=== PATIENT | female | born 1980 | race Caucasian/White ===

== ENCOUNTER 2019-01-28 17:54 | Emergency (ER) | payer SELFPAY ==
[2019-01-28 18:13] LABS: Bilirubin Negative (Negative); Blood, Urine Trace (Negative); Glucose, Urine (Dipstick) Negative (Negative); Leukocyte Negative (Negative); Nitrite Negative (Negative); Protein, Urine (Dipstick) Negative (Neg-Trace); Urobilinogen 0.2 mg/dL (0.2-1.0)
[2019-01-28 18:18] LABS: Clarity Hazy (Clear)
[2019-01-28 18:19] LABS: Specific Gravity, Urine 1.007 (1.002-1.036)
[2019-01-28 18:24] LABS: Bacteria/HPF Rare-Few HPF (None Seen); RBC/HPF 0-3 HPF (0-3); WBC/HPF 0-3 HPF (0-3)
--- NOTE | 2019-01-28 18:34 | CT ---
Exam: Abdomen CT without contrast Pelvic CT without contrast HISTORY: Left kidney pain COMPARISON: 10/31/2009 FINDINGS: Abdomen CT: Lung bases:0.9 x 1.0 cm slightly irregular marginated opacity in the right lung base, evaluated. Opac ity is likely in the middle lobe. Heart size: Normal size Aorta: Normal caliber Solid organs: Limited evaluation due to technique. Grossly no solid organ abnormality Lymph nodes: No gastrohepatic, retrocrural or periportal lymphadenopathy Gallbladder: Surgically Mesentery: No mass, lymphadenopathy, free air or free fluid Kidneys: Bilaterally, no hydronephrosis, nephrolithiasis or perinephric fat stranding. Bilateral uret ers have a normal caliber. No hydroureter, periureteral fat stranding or ureterolithiasis. Alimentary canal: Limited evaluation due to technique. No bowel obstruction. Normal caliber appendix. CT PELVIS: No mass, adenopathy, free air or free fluid. Surgically absent uterus. Urinary bladder: Unremarkable. Osseous structures: No lytic or blastic lesions IMPRESSION: 1. No evidence of nephrolithiasis or obstructive uropathy 2. Normal caliber appendix 3. Ill-defined opacity in the middle lobe. Nonemergent chest CT can be performed Code lung nodule
[2019-01-28] MEDS ORDERED: Sodium Chloride 0.9% 1,000 ML ONE (18:35)
[2019-01-28] MEDS ORDERED: Ondansetron PF 4 MG/2 ML Vial ONE (18:35)
[2019-01-28] MEDS ORDERED: Fentanyl 100 MCG/2 ML VIAL ONE (18:35)
[2019-01-28 18:36] LABS: #Eosinphils 0.2 thou/uL (0.0-0.7); #Lymphocytes 2.4 thou/uL (1.20-3.40); #Monocytes 0.3 thou/uL (0.11-0.59); #Neutrophils 2.2 thou/uL (1.40-6.50); %Basophils 0.7 % (0.0-1.0); %Eosinophils 4.6 % (0.0-10.0); %Lymphocytes 45.5 % (21.0-51.0); %Monocytes 6.1 % (0.0-10.0); %Neutrophils 43.1 % (42.0-75.0); Hemoglobin 13.8 g/dL (12.0-16.0); Mean Corpuscular HGB CONC 32.6 g/dL (32.0-36.0); Mean Corpuscular Hemoglobin 30.8 pg (27.0-31.0); Mean Corpuscular Volume 94.4 fL (78.0-98.0); Mean Platelet Volume 6.8 fL (7.4-10.4); Platelet Count 265 thou/uL (130-400); RBC Distribution Width 12.4 % (11.5-14.5); Red Blood Cell (RBC) Count 4.49 mill/uL (4.20-5.40); White Blood Cell (WBC) Count 5.2 thou/uL (4.8-10.8)
[2019-01-28 18:50] LABS: ALT (SGPT) 19 U/L (8-55); AST (SGOT) 16 U/L (5-34); Albumin 4.1 g/dL (3.5-5.0); Alkaline Phosphatase 94 U/L (40-150); Anion Gap 12 mmol/L (10-20); BUN (Urea Nitrogen) 8 mg/dL (7.0-18.7); Bilirubin, Total 0.4 mg/dL (0.2-1.2); Calc. Creatinine Clearance 0 mL/min (70-130); Calcium 9.2 mg/dL (7.8-10.44); Carbon Dioxide 22 mmol/L (22-29); Chloride 111 mmol/L (98-107); Estimated GFR-MDRD 83; Globulin 2.9 g/dL (2.4-3.5); Glucose 109 mg/dL (70-105); Lipase 45 U/L (8-78); Sodium 141 mmol/L (136-145)
[2019-01-28] MEDS ORDERED: Ketorolac Tromethamine 30 MG/ML VIAL ONE (19:10)
== END 2019-01-28 19:48 | disposition home or self-care (01) ==
LOC: MADERS 17:54
DX: R10.9 Unspecified abdominal pain (principal); F41.9 Anxiety disorder, unspecified; F17.210 Nicotine dependence, cigarettes, uncomplicated; Z87.442 Personal history of urinary calculi; Z79.899 Other long term (current) drug therapy
CPT/HCPCS: 74176; 80053; 81003; 81015; 83690; 85025; 96361; 96374; 96375; J1885; J2405; J3010; J7050

== ENCOUNTER 2019-03-16 11:19 | Emergency (ER) | payer SELFPAY ==
[2019-03-16 12:07] LABS: Bilirubin Negative (Negative); Blood, Urine Large (Negative); Clarity Clear (Clear); Glucose, Urine (Dipstick) Negative (Negative); Leukocyte Negative (Negative); Nitrite Negative (Negative); Protein, Urine (Dipstick) Negative (Neg-Trace); Urobilinogen 0.2 mg/dL (0.2-1.0)
[2019-03-16 12:09] LABS: Specific Gravity, Urine 1.028 (1.002-1.036)
[2019-03-16 12:13] LABS: Bacteria/HPF Rare-Few HPF (None Seen); WBC/HPF 0-3 HPF (0-3)
[2019-03-16 12:25] LABS: #Eosinphils 0.2 thou/uL (0.0-0.7); #Lymphocytes 2.3 thou/uL (1.20-3.40); #Monocytes 0.4 thou/uL (0.11-0.59); #Neutrophils 2.7 thou/uL (1.40-6.50); %Basophils 0.5 % (0.0-1.0); %Eosinophils 4.1 % (0.0-10.0); %Lymphocytes 40.5 % (21.0-51.0); %Monocytes 7.3 % (0.0-10.0); %Neutrophils 47.7 % (42.0-75.0); Hemoglobin 12.9 g/dL (12.0-16.0); Mean Corpuscular HGB CONC 31.9 g/dL (32.0-36.0); Mean Corpuscular Hemoglobin 30.2 pg (27.0-31.0); Mean Corpuscular Volume 94.8 fL (78.0-98.0); Mean Platelet Volume 7.4 fL (7.4-10.4); Platelet Count 269 thou/uL (130-400); RBC Distribution Width 12.1 % (11.5-14.5); Red Blood Cell (RBC) Count 4.27 mill/uL (4.20-5.40); White Blood Cell (WBC) Count 5.7 thou/uL (4.8-10.8)
[2019-03-16] MEDS ORDERED: Morphine 10 MG/ML VIAL ONE (12:25)
[2019-03-16 12:46] LABS: ALT (SGPT) 28 U/L (8-55); AST (SGOT) 17 U/L (5-34); Albumin 4.3 g/dL (3.5-5.0); Alkaline Phosphatase 85 U/L (40-150); Anion Gap 13 mmol/L (10-20); BUN (Urea Nitrogen) 21 mg/dL (7.0-18.7); Bilirubin, Total 0.4 mg/dL (0.2-1.2); Calc. Creatinine Clearance 0 mL/min (70-130); Calcium 9.2 mg/dL (7.8-10.44); Carbon Dioxide 25 mmol/L (22-29); Chloride 106 mmol/L (98-107); Estimated GFR-MDRD 87; Globulin 2.6 g/dL (2.4-3.5); Glucose 81 mg/dL (70-105); Lipase 39 U/L (8-78); Potassium 4.3 mmol/L (3.5-5.1); Protein, Total 6.9 g/dL (6.0-8.3); Sodium 140 mmol/L (136-145)
--- NOTE | 2019-03-16 12:58 | CT ---
CT abdomen and pelvis noncontrast HISTORY: Flank pain. COMPARISON: 01/28/2019. FINDINGS: Each renal collecting system, ureter, and urinary bladder are decompressed without stone ap parent. Lack of contrast limits evaluation for other abnormalities. Gallbladder is surgically absent. No evid ence of bowel obstruction. The irregular shaped peripheral 1.1 cm noncalcified groundglass nodule within the right middle lobe i s unchanged in appearance from the previous exam. Mild atelectasis at each posterior lung base. IMPRESSION: No CT evidence of urinary tract obstruction or calcification. Unchanged appearance of the small peripheral right middle lobe nodule. Please consider follow-up with full CT chest, including IV contrast, in 4-6 months to evaluate for stability and other abnormalities.
[2019-03-16] MEDS ORDERED: HYDROcodone/Acetaminophen 5/325 mg Tablet ONE (13:22)
== END 2019-03-16 13:32 | disposition home or self-care (01) ==
LOC: MADERS 11:19
DX: R10.9 Unspecified abdominal pain (principal); F41.9 Anxiety disorder, unspecified; F17.210 Nicotine dependence, cigarettes, uncomplicated; Z79.899 Other long term (current) drug therapy
CPT/HCPCS: 74176; 80053; 81003; 81015; 83605; 83690; 85025; 96372; J2270

== ENCOUNTER 2019-03-27 13:07 | Emergency (ER) | payer SELFPAY ==
[2019-03-27 13:37] LABS: Bilirubin Negative (Negative); Blood, Urine Large (Negative); Clarity Hazy (Clear); Glucose, Urine (Dipstick) Negative (Negative); Leukocyte Negative (Negative); Nitrite Negative (Negative); Protein, Urine (Dipstick) Negative (Neg-Trace); Urobilinogen 0.2 mg/dL (Less than 2)
[2019-03-27 13:38] LABS: Pregnancy Test - Urine (BHCG) Negative (Negative); Pregu Control Background? CLEAR/WHITE (CLR/WHITE); Pregu Control Bar Appear? YES (CONTROL BAR)
[2019-03-27] MEDS ORDERED: Acetaminophen/Codeine 30-300mg Tablet ONE (13:40)
[2019-03-27] MEDS ORDERED: Benzonatate 100 MG CAP ONE (13:40)
[2019-03-27 13:43] LABS: Specific Gravity 1.024 (1.002-1.036)
[2019-03-27 13:57] LABS: WBC/HPF 0-3 HPF (0-3)
[2019-03-27 13:58] LABS: Bacteria/HPF Rare-Few HPF (None Seen)
--- NOTE | 2019-03-27 13:59 | RAD ---
RADIOGRAPH CHEST 2 VIEWS: DATE: 03/27/2019 HISTORY: 38-year-old female with cough FINDINGS: There is no airspace density, pulmonary edema, pleural effusion, pneumothorax, or cardiomegaly. IMPRESSION: No acute cardiopulmonary findings.
== END 2019-03-27 14:53 | disposition home or self-care (01) ==
LOC: MADERS 13:07
DX: J20.8 Acute bronchitis due to other specified organisms (principal); F41.9 Anxiety disorder, unspecified; F17.210 Nicotine dependence, cigarettes, uncomplicated; Z79.899 Other long term (current) drug therapy; Z87.442 Personal history of urinary calculi
CPT/HCPCS: 71046; 81003; 81015; 81025

== ENCOUNTER 2019-04-23 13:59 | Emergency (ER) | payer SELFPAY ==
--- NOTE | 2019-04-23 14:54 | RAD ---
2 VIEW CHEST: Date: 04/23/19 HISTORY: Cough. FINDINGS: Lung estrada are clear. Heart and mediastinum unremarkable. Osseous structures unremarkable. IMPRESSION: No acute abnormality. POS: [facility]
== END 2019-04-23 15:17 | disposition home or self-care (01) ==
LOC: MADERS 13:59
DX: J18.9 Pneumonia, unspecified organism (principal); F17.210 Nicotine dependence, cigarettes, uncomplicated; Z71.6 Tobacco abuse counseling; F41.9 Anxiety disorder, unspecified; Z79.899 Other long term (current) drug therapy
CPT/HCPCS: 71046; 99406

== ENCOUNTER 2019-08-22 23:19 | Emergency (ER) | payer SELFPAY ==
[2019-08-22 23:58] LABS: #Basophils 0.1 thou/uL (0.0-0.2); #Eosinphils 0.4 thou/uL (0.0-0.7); #Monocytes 0.4 thou/uL (0.11-0.59); #Neutrophils 3.6 thou/uL (1.40-6.50); %Basophils 0.7 % (0.0-1.0); %Eosinophils 4.7 % (0.0-10.0); %Lymphocytes 46.8 % (21.0-51.0); %Neutrophils 42.8 % (42.0-75.0); Hemoglobin 14.9 g/dL (12.0-16.0); Mean Corpuscular HGB CONC 32.3 g/dL (32.0-36.0); Mean Corpuscular Hemoglobin 30.8 pg (27.0-31.0); Mean Corpuscular Volume 95.4 fL (78.0-98.0); Mean Platelet Volume 8.2 fL (7.4-10.4); Platelet Count 373 thou/uL (130-400); Red Blood Cell (RBC) Count 4.85 mill/uL (4.20-5.40); White Blood Cell (WBC) Count 8.5 thou/uL (4.8-10.8)
[2019-08-23 00:08] LABS: ALT (SGPT) 28 U/L (8-55); AST (SGOT) 16 U/L (5-34); Albumin 4.7 g/dL (3.5-5.0); Alkaline Phosphatase 111 U/L (40-110); Anion Gap 18 mmol/L (10-20); BUN (Urea Nitrogen) 4 mg/dL (7.0-18.7); Bilirubin, Total 0.4 mg/dL (0.2-1.2); Calc. Creatinine Clearance 0 mL/min (70-130); Calcium 9.3 mg/dL (7.8-10.44); Carbon Dioxide 19 mmol/L (22-29); Chloride 112 mmol/L (98-107); Estimated GFR-MDRD 82; Globulin 3.1 g/dL (2.4-3.5); Glucose 145 mg/dL (70-105); Potassium 3.8 mmol/L (3.5-5.1); Protein, Total 7.8 g/dL (6.0-8.3); Sodium 145 mmol/L (136-145)
[2019-08-23 00:20] LABS: Acetaminophen Less than 6.0 mcg/mL (10.0-30.0); Alcohol 275 mg/dL (Less than 10); Salicylate Less than 8.0 mg/dL (15.0-30.0)
[2019-08-23 00:36] LABS: Bilirubin Negative (Negative); Blood, Urine Negative (Negative); Clarity Clear (Clear); Glucose, Urine (Dipstick) Negative (Negative); Leukocyte Negative (Negative); Nitrite Negative (Negative); Protein, Urine (Dipstick) Negative (Neg-Trace); Urobilinogen 0.2 mg/dL (Less than 2)
[2019-08-23 00:48] LABS: Amphetamine Not Detected (NotDetected); Barbiturates Screen Not Detected (NotDetected); Benzodiazepine Screen Not Detected (NotDetected); Cocaine Metabolite Screen Not Detected (NotDetected); Medtox Control Line Valid? VALID (VALID); Methadone Not Detected (NotDetected); Methamphetamine Not Detected (NotDetected); Opiate Screen Not Detected (NotDetected); Oxycodone Screen Not Detected (NotDetected); Phencyclidine (PCP) Not Detected (NotDetected); THC/Cannabinoid Screen Not Detected (NotDetected); Tricyclic Screen Not Detected (NotDetected)
[2019-08-23 01:49] LABS: Actual Bicarbonate (HCO3v) 24 mEq/L (22-28); Base Excess -2.3 mEq/L (-2.0 to +3.0); Calcium, Ionized 1.22 mmol/L (1.16-1.32); Chloride (ABG LAB) 109 mmol/L (98-106); Hemoglobin (Hb) 17.3 g/dL (11.7-15.5); Potassium - ABG Lab 4.06 mmol/L (3.70-5.30); pH (venous) 7.32 (7.32-7.43)
[2019-08-23] MEDS ORDERED: Acetaminophen 500 MG TAB ONE (08:30)
[2019-08-23] MEDS ORDERED: Ondansetron ODT 4 MG TAB ONE (14:57)
== END 2019-08-23 19:29 ==
LOC: MADERS 23:19
DX: R45.851 Suicidal ideations (principal); F17.210 Nicotine dependence, cigarettes, uncomplicated; F41.9 Anxiety disorder, unspecified; Z87.442 Personal history of urinary calculi
CPT/HCPCS: 36415; 80053; 80306; 80307; 81003; 82330; 82803; 82805; 83690; 84443; 85025; 93005; Q0162